=== PATIENT | female | born 1995 | race Caucasian/White ===

== ENCOUNTER 2017-03-18 13:03 | Emergency (ER) | payer MEDICARE | END 2017-03-18 15:54 | disposition home or self-care (01) | LOC: D.ER 13:03 | DX: J20.9 Acute bronchitis, unspecified (principal); J06.9 Acute upper respiratory infection, unspecified; I10 Essential (primary) hypertension ==

== ENCOUNTER 2018-07-28 12:41 | Emergency (ER) | payer MEDICARE, MEDICAID ==
[2018-07-28 12:49] VITALS: Wt 98.2 kg
[2018-07-28 14:31] LABS: BASOPHILS 0.3 % (0-2); HEMATOCRIT 40.5 % (36.0-48.0); HEMOGLOBIN 14.4 g/dL (12-16); IMMATURE GRANULOCYTES 0.1 % (0-5); LYMPHOCYTES 35.9 % (15-50); MCH 30.2 pg (26.0-34.0); MCHC 35.6 g/dL (31.0-37.0); MCV 84.9 fL (80.0-100.0); MEAN PLATELET VOLUME 9.9 fL (7.4-10.4); NEUTROPHILS 57.7 % (40-80); PLATELET COUNT 252 10x3/uL (130-400); RBC 4.77 10x6/uL (4.00-5.40); RDW 12.1 % (11.5-14.5); WBC 7.3 10x3/uL (4.8-10.8)
[2018-07-28 14:32] LABS: APPEARANCE CLEAR (CLEAR); COLOR STRAW (YELLOW); GLUCOSE NEGATIVE (NEGATIVE); NITRITE NEGATIVE (NEGATIVE); PROTEIN NEGATIVE (NEGATIVE)
[2018-07-28 14:33] LABS: BILIRUBIN NEGATIVE (NEGATIVE); KETONE NEGATIVE (NEGATIVE); UROBILINOGEN NORMAL (NORMAL)
[2018-07-28 14:35] LABS: HCG URINE NEGATIVE (NEGATIVE)
[2018-07-28 14:53] LABS: ALKALINE PHOSPHATASE 60 U/L (46-116); ALT (SGPT) 31 U/L (10-68); AMYLASE - SERUM 51 U/L (25-115); BILIRUBIN - TOTAL 0.35 mg/dL (0.2-1.3); CALC OSMOLALITY 269 mosm/kg (275-300); CALCIUM 8.8 mg/dL (8.5-10.1); CARBON DIOXIDE 25.7 mmol/L (21.0-32.0); CHLORIDE - SERUM 102 mmol/L (98-107); CREATININE - SERUM 0.5 mg/dL (0.6-1.3); LIPASE 132 U/L (73-393); POTASSIUM - SERUM 3.9 mmol/L (3.5-5.1); SODIUM 136 mmol/L (136-145); UREA NITROGEN 7 mg/dL (7-18); eGFR NON AFRICAN AMERICAN > 90 mL/min (90-120)
[2018-07-28 14:55] LABS: GLUCOSE 98 mg/dL (74-106)
[2018-07-28] MEDS ORDERED: ONDANSETRON8 MG/TAB PO (17:32)
[2018-07-28] MEDS ORDERED: TORADOL10 MG PO (17:32)
[2018-07-28 18:17] VITALS: BP 134/76
[2018-08-02] MEDS ORDERED: PROZAC PO (18:45)
[2018-08-02] MEDS ORDERED: BC PILL (18:45)
[2018-08-03 12:18] VITALS: Wt 98.2 kg
== END 2018-07-28 18:18 | disposition home or self-care (01) ==
LOC: D.ER 12:41
PROVIDERS: Family Medicine
DX: M54.5 Low back pain (principal); R10.31 Right lower quadrant pain

== ENCOUNTER 2018-08-02 18:09 | Inpatient (IN) | payer MEDICARE, MEDICAID ==
[~2018-08-02] VITALS: Ht 144 cm; Wt 92.5 kg
[~2018-08-02 18:09] MED LIST: ONDANSETRON8 MG/TAB PO; TORADOL10 MG PO
[2018-08-02] MEDS ORDERED: PROZAC20 MG PO (18:45)
[2018-08-02] MEDS ORDERED: LARIN PO (18:45)
[2018-08-02] MEDS ORDERED: ANTIBIOTIC (18:46)
[2018-08-02 19:08] LABS: BASOPHILS 0.3 % (0-2); EOSINOPHILS 1.8 % (0-7); HEMOGLOBIN 14.4 g/dL (12-16); IMMATURE GRANULOCYTES 0.2 % (0-5); LYMPHOCYTES 45.4 % (15-50); MCH 30.4 pg (26.0-34.0); MCV 84.6 fL (80.0-100.0); MEAN PLATELET VOLUME 9.6 fL (7.4-10.4); MONOCYTES 9.6 % (2-11); NEUTROPHILS 42.7 % (40-80); PLATELET COUNT 238 10x3/uL (130-400); RBC 4.73 10x6/uL (4.00-5.40); RDW 12.1 % (11.5-14.5)
[2018-08-02 19:14] LABS: APTT 26.1 SECONDS (22.8-39.4); INR 1.02 (0.85-1.17); PROTIME 12.9 SECONDS (11.6-15.0)
--- NOTE | 2018-08-02 19:26 | NUR ---
OCCULT BLOOD (GUAIAC) POSITIVE. SAMPLE COLLECTED BY Lisa HEART.
[2018-08-02 19:52] LABS: eGFR NON AFRICAN AMERICAN > 90 mL/min (90-120)
[2018-08-02 19:58] LABS: GLUCOSE 89 mg/dL (74-106); UREA NITROGEN 6 mg/dL (7-18)
[2018-08-02 19:59] LABS: CALCIUM 7.4 mg/dL (8.5-10.1); CARBON DIOXIDE 18.7 mmol/L (21.0-32.0); CHLORIDE - SERUM 89 mmol/L (98-107); CREATININE - SERUM 0.3 mg/dL (0.6-1.3); POTASSIUM - SERUM 3.3 mmol/L (3.5-5.1); SODIUM 121 mmol/L (136-145)
[2018-08-02 20:00] LABS: CALC OSMOLALITY 288 mosm/kg (275-300)
[2018-08-02 20:01] LABS: ALBUMIN 2.8 g/dL (3.4-5.0); ALKALINE PHOSPHATASE 50 U/L (46-116); ALT (SGPT) 24 U/L (10-68); BILIRUBIN - TOTAL 0.12 mg/dL (0.2-1.3); PROTEIN - SERUM 4.1 g/dL (6.4-8.2)
[2018-08-02 21:08] LABS: ERYTHROCYTE SEDIMENTATION RATE 13 mm/hr (0-20)
[2018-08-02 22:34] LABS: APPEARANCE SL CLDY (CLEAR); BILIRUBIN NEGATIVE (NEGATIVE); GLUCOSE NEGATIVE (NEGATIVE); KETONE NEGATIVE (NEGATIVE); NITRITE NEGATIVE (NEGATIVE); PROTEIN NEGATIVE (NEGATIVE); UROBILINOGEN NORMAL (NORMAL)
[2018-08-02 22:35] LABS: WHITE CELLS - URINE 0-5 /hpf (0-5)
[2018-08-02 22:36] LABS: BACTERIA MODERATE /hpf (NONE SEEN)
[2018-08-02 22:40] VITALS: BP 152/76
[2018-08-03] VITALS (8 sets, daily range): BP systolic 111–136; BP diastolic 43–94; Ht 144 cm; Wt 92.5 kg
--- NOTE | 2018-08-03 00:17 | NUR ---
PT ARRIVED TO FLOOR VIA WHEELCHAIR WITH MOTHER AT SIDE. PT IS ALERT AND ORIENTED X4. RR EVEN AND UNLABORED. PT VITALS STABLE AT THIS TIME. MOTHER ANSWERS SOME OF PT'S QUESTIONS. BED LOW CALL LIGHT WITHIN REACH. WILL CONTINUE TO MONITOR.
--- NOTE | 2018-08-03 02:17 | NUR ---
ADMISSION ASSESSMENT COMPLETED AT THIS TIME. PT RESTING IN BED.
--- NOTE | 2018-08-03 02:50 | NUR ---
PT RESTING COMFORTABLY IN BED WITH MOTHER AT BEDSIDE. RR EVEN AND UNLABORED. VITALS STABLE. NO S/S OF DISTRESS AT THIS TIME. BED LOW CALL LIGHT WITHIN REACH. WILL CONTINUE TO MONITOR.
[2018-08-03 04:05] LABS: BASOPHILS 0.3 % (0-2); EOSINOPHILS 2.1 % (0-7); HEMATOCRIT 36.5 % (36.0-48.0); HEMOGLOBIN 12.9 g/dL (12-16); IMMATURE GRANULOCYTES 0.1 % (0-5); LYMPHOCYTES 42.5 % (15-50); MCH 29.9 pg (26.0-34.0); MCHC 35.3 g/dL (31.0-37.0); MCV 84.7 fL (80.0-100.0); MEAN PLATELET VOLUME 9.8 fL (7.4-10.4); MONOCYTES 10.1 % (2-11); NEUTROPHILS 44.9 % (40-80); PLATELET COUNT 193 10x3/uL (130-400); RBC 4.31 10x6/uL (4.00-5.40); RDW 12.1 % (11.5-14.5)
[2018-08-03 04:32] LABS: AMYLASE - SERUM 46 U/L (25-115); CALC OSMOLALITY 272 mosm/kg (275-300); CALCIUM 8.7 mg/dL (8.5-10.1); CARBON DIOXIDE 22.9 mmol/L (21.0-32.0); CHLORIDE - SERUM 106 mmol/L (98-107); GLUCOSE 105 mg/dL (74-106); LIPASE 117 U/L (73-393); MAGNESIUM - SERUM 1.9 mg/dL (1.8-2.4); PHOSPHOROUS 4.8 mg/dL (2.5-4.9); SODIUM 138 mmol/L (136-145); THYROID STIMULATING HORMONE 3.24 uIU/mL (0.36-3.74); UREA NITROGEN 5 mg/dL (7-18)
[2018-08-03 04:34] LABS: CREATININE - SERUM 0.5 mg/dL (0.6-1.3); POTASSIUM - SERUM 3.8 mmol/L (3.5-5.1); eGFR NON AFRICAN AMERICAN > 90 mL/min (90-120)
--- NOTE | 2018-08-03 07:00 | NUR ---
RECEIVED REPORT. ASSUMED CARE OF PATIENT. PATIENT JUST RECEIVED ZOFRAN FROM NIGHT STAFF NURSE,LALO, FOR N/V THIS AM. PATIENT LYING ON RIGHT LATERAL SIDE. RESP EVEN AND UNLABORED. PATIENT STATES SHE IS SLEEPY THIS AM. IV FLUIDS INFUSING ORDERED. PATIENTS MOM AT BEDSIDE. NO DISTRESS. CALL LIGHT WITHIN REACH.
--- NOTE | 2018-08-03 07:11 | NUR ---
SPOKE WITH [facility] IN THE LAB AND THEY ARE RUNNING A CULTURE ON THE URINE THAT WAS COLLECTED LAST NIGHT.
--- NOTE | 2018-08-03 10:20 | NUR ---
ULTRASOUND OF GALLBLADDER COMPLETED. CLEAR LIQUIDS PROVIDED UPON REQUEST. NO N/V AT THIS TIME.
--- NOTE | 2018-08-03 10:35 | NUR ---
CXR COMPLETE AT BEDSIDE. NO DISTRESS.
--- NOTE | 2018-08-03 11:45 | NUR ---
RESTING IN BED. NO DISTRESS. IV FLUIDS INFUSING ORDERED. PT HAS NO VISITORS AT BEDSIDE AT THIS TIME. DENEIS NEEDS.
--- NOTE | 2018-08-03 12:43 | NUR ---
REQUEST MADE TO PROVIDER FOR TYLENOL FOR HEADACHE. WAITING FOR RESPONSE.
--- NOTE | 2018-08-03 12:47 | NUR ---
ANSWERED CALL LIGHT. PATIENT ASSISTED OOB TO RESTROOM AND BACK TO BED.
--- NOTE | 2018-08-03 12:51 | NUR ---
MEDICATED FOR HEADACHE AT THIS TIME. NO DISTRESS.
--- NOTE | 2018-08-03 14:07 | NUR ---
NEFTALY PROVIDED UPON REQUEST. IV FLUIDS INFUSING ORDERED. NO DISTRESS.
--- NOTE | 2018-08-03 15:16 | NUR ---
NEW ORDER RECEIVED AND ENTERED FOR REGUALR DIET.
--- NOTE | 2018-08-03 16:01 | NUR ---
ASSISTED TO AND FROM RESTROOM. IV FLUIDS INFUSING ORDERED AT THIS TIME. CALL LIGHT WITHIN REACH. PATIENTS MOM AT BEDSIDE AT THIS TIME. NO DISTRESS.
--- NOTE | 2018-08-03 16:54 | NUR ---
PATIENT REFUSED SCD'S.
--- NOTE | 2018-08-03 17:47 | NUR ---
PATIENT NOTED TO HAVE HER MENSTRUAL CYCLE. PATIENT STATES SHE JUST HAD A MENSTRUAL CYCLE ON July, AND DOESN'T KNOW WHY SHE IS HAVING ANOTHER ONE SO SOON. PATIENT STATES SHE HAS BEEN MORE STRESSED OUT THAN USUSAL. ASKED PATIENT IF SHE IS HAVING BLOOD FROM HER RECTUM, PATIENT STATES VERY LITTLE IF ANY. PATIENT HAS CONSUMED AND TOLERATED A REGULAR DIET WELL FOR PM MEAL. CALL LIGHT WITHIN REACH. NO DISTRESS. NO VISITORS AT BEDSIDE.
--- NOTE | 2018-08-03 19:27 | NUR ---
REPORT RECIEVED AND ROUNDING COMPLETE. PATIENT LAYING IN BED. PT REQUESTED SOME PUDDING OR APPLESAUCE. PATIENT HAS A RIGHT FOREARM THAT IS SALINE LOCKED WITH NO S/SX OF INFILTRATION OR INFECTION. PT STATES SHE IS NOT IN ANY PAIN AT THIS TIME. PATIENT STATE SHE HAS NO OTHER NEEDS A THIS TIME. CALL LIGHT WITHIN REACH AND BED IN LOWEST POSITION AND LOCKED.
--- NOTE | 2018-08-03 19:47 | NUR ---
RESTARTED PATIENTS NORMAL SALINE @ 100 PER ORDERS. PATIENT STATES SHE UNDID HERSELF TO GO TO THE BATHROOM EARLIER AND FORGOT TO TELL HER NURSE. NO OTHER NEEDS AT THIS TIME. CALL LIGHT WITHIN REACH AND BED IN LOWEST POSITION.
--- NOTE | 2018-08-03 21:06 | NUR ---
LAB CALLED PATIENT IS POSITIVE FOR THE ANTIGEN OF CDIFF. ENTERIC PRECAUTION PUT INTO EFFECT. PATIENT NOTIFIED.
[2018-08-04 03:55] VITALS: BP 125/61
[2018-08-04 03:55] LABS: BASOPHILS 0.3 % (0-2); EOSINOPHILS 2.1 % (0-7); HEMATOCRIT 38.6 % (36.0-48.0); HEMOGLOBIN 13.4 g/dL (12-16); IMMATURE GRANULOCYTES 0.2 % (0-5); LYMPHOCYTES 48.7 % (15-50); MCH 29.8 pg (26.0-34.0); MCHC 34.7 g/dL (31.0-37.0); MCV 85.8 fL (80.0-100.0); MEAN PLATELET VOLUME 9.7 fL (7.4-10.4); MONOCYTES 7.9 % (2-11); NEUTROPHILS 40.8 % (40-80); PLATELET COUNT 205 10x3/uL (130-400); RDW 12.3 % (11.5-14.5); WBC 5.8 10x3/uL (4.8-10.8)
[2018-08-04 04:04] LABS: CALC OSMOLALITY 278 mosm/kg (275-300); CALCIUM 8.8 mg/dL (8.5-10.1); CARBON DIOXIDE 25.8 mmol/L (21.0-32.0); CHLORIDE - SERUM 107 mmol/L (98-107); CREATININE - SERUM 0.5 mg/dL (0.6-1.3); GLUCOSE 108 mg/dL (74-106); MAGNESIUM - SERUM 1.9 mg/dL (1.8-2.4); PHOSPHOROUS 4.5 mg/dL (2.5-4.9); POTASSIUM - SERUM 3.9 mmol/L (3.5-5.1); SODIUM 141 mmol/L (136-145); UREA NITROGEN 5 mg/dL (7-18); eGFR NON AFRICAN AMERICAN > 90 mL/min (90-120)
--- NOTE | 2018-08-04 07:00 | NUR ---
RECEIVED REPORT. ASSUMED CARE OF PATIENT. PATIENT RESTINING IN BED WITH EYES CLOSED, EASILY AROUSED. RESP EVEN AND UNLABORED. IV FLUIDS INFUSING ORDERED. PATIENT UPSET THAT HER MOM DID NOT STAY WITH HER LAST NIGHT. DENIES NEEDS OTHER THAT WAITING ON HER BREAKFAST TO COME. NO DISTRESS.
[2018-08-04 08:02] VITALS: BP 123/75
--- NOTE | 2018-08-04 11:46 | NUR ---
ASSISTED PATIENT OOB TO RESTROOM AND BACK TO BED. CALL LIGHT WITHIN REACH. NO DISTRESS.
[2018-08-04 11:50] VITALS: BP 122/68
--- NOTE | 2018-08-04 13:00 | NUR ---
ASSISTED PATIENT OOB TO RESTROOM AND BACK TO BED. NO DISTRESS.
--- NOTE | 2018-08-04 14:00 | NUR ---
PATIENT OOB TO SHOWER AT THIS TIME. NO DISTRESS.
[2018-08-04 16:03] VITALS: BP 150/77
--- NOTE | 2018-08-04 16:05 | NUR ---
PATIENT PAYROLL ASSISTANT LIGHT AGAIN. PATIENT IS IN ISOLATION. WHEN IN PATIENT ROOM EARLIER ASKED PATIENT IF SHE NEEDED ANYTHING ELSE. SOON THIS NURSE LEAVES THE ROOM SHE IS ON THE CALL LIGHT FOR CRACKERS. PATIENTS MOM IS AT BEDSIDE ALSO. PATIENT HAS DONE THIS ALL DAY WITH THE CALL LIGHT. NURSES TRYING TO PROVIDE CLUSTER CARE PATIENT IS IN ISOLATION. PATIENT IS NOT UNDERSTANDING OF THIS APPROACH.
--- NOTE | 2018-08-04 19:00 | NUR ---
PATIENT SITTING UP IN BED. NO COMPLAINTS AT THIS TIME. NO DISTRESS NOTED.
[2018-08-04 19:10] VITALS: BP 143/78
[2018-08-04 23:55] VITALS: BP 128/81
--- NOTE | 2018-08-05 01:00 | NUR ---
PATIENT SITTING UP IN BED. NO COMPLAINTS AT THIS TIME. NO DISTRESS NOTED.
--- NOTE | 2018-08-05 03:26 | NUR ---
I have reviewed this patient and I concur with the Shift Assessment completed by the Licensed Practical Nurse today this shift.
[2018-08-05 03:55] VITALS: BP 139/65
[2018-08-05 04:51] LABS: BASOPHILS 0.3 % (0-2); HEMATOCRIT 39.6 % (36.0-48.0); HEMOGLOBIN 13.7 g/dL (12-16); IMMATURE GRANULOCYTES 0.1 % (0-5); LYMPHOCYTES 50.4 % (15-50); MCH 29.7 pg (26.0-34.0); MCHC 34.6 g/dL (31.0-37.0); MCV 85.9 fL (80.0-100.0); MEAN PLATELET VOLUME 9.9 fL (7.4-10.4); MONOCYTES 7.9 % (2-11); NEUTROPHILS 39.3 % (40-80); PLATELET COUNT 234 10x3/uL (130-400); RBC 4.61 10x6/uL (4.00-5.40); RDW 12.4 % (11.5-14.5); WBC 7.1 10x3/uL (4.8-10.8)
[2018-08-05 05:21] LABS: CALC OSMOLALITY 278 mosm/kg (275-300); CALCIUM 8.9 mg/dL (8.5-10.1); CARBON DIOXIDE 26.2 mmol/L (21.0-32.0); CHLORIDE - SERUM 106 mmol/L (98-107); CREATININE - SERUM 0.6 mg/dL (0.6-1.3); GLUCOSE 103 mg/dL (74-106); MAGNESIUM - SERUM 1.9 mg/dL (1.8-2.4); PHOSPHOROUS 4.7 mg/dL (2.5-4.9); POTASSIUM - SERUM 3.8 mmol/L (3.5-5.1); SODIUM 141 mmol/L (136-145); eGFR NON AFRICAN AMERICAN > 90 mL/min (90-120)
[2018-08-05 05:24] LABS: UREA NITROGEN 8 mg/dL (7-18)
--- NOTE | 2018-08-05 08:00 | NUR ---
AM ROUNDS COMPLETED. INTRODUCED MYSELF TO PT PRIMARY RN FOR TODAYS SHIFT. PT IS A&O SITTING UP IN BED RESTING QUIETLY. PT STATES SHE SLEPT ALRIGHT BUT DENIES FEELING ANY BETTER. PT IS COGNITIVELY DELAYED BUT CAN SPEAK AND DO ALL TASK ON HER OWN JUST NOT COMPLETELY SURE OF WHAT SHE UNDERSTANDS AND RETAINS ENTIRELY. NO IMMEDIATE NEEDS AT THIS TIME. CL IN REACH, BED IN LOWEST, SIDE RAILS X2. WILL CTM.
[2018-08-05 08:05] VITALS: BP 128/72
--- NOTE | 2018-08-05 11:34 | NUR ---
PT C/O HEADACHE REQUESTING AND PROVIDED WITH PRN TYLENOL. PT STATES HER R.FA PIV HAS BEEN BURNING ALL NIGHT AND THAT SHE INFORMED THE NIGHTSHIFT STAFF BUT NOBODY TURNED IT OFF. UPON ASSESSING IT NOTED IMMEDIATE OBVIOUS SWELLING AND INFILTRATED. D/C WITH CATHETER TIP FULLY INTACT. PT IS NOT WANTING A NEW PIV IF SHE MAY BE DISCHARGE TODAY WHICH APPEARS A POSSIBILITY. WILL DISCUSS WITH PRIMARY UPON ROUNDING. PT VOICED THANKS AND WILL SEE IF TYLENOL HELPS. NO FURTHER NEEDS AT THIS TIME. WILL CTM.
[2018-08-05 11:38] VITALS: BP 104/64
--- NOTE | 2018-08-05 12:33 | NUR ---
PAGED ON-CALL ROUNDING PHYSICIANS AND OBTAINED TELEPHONE ORDER TO D/C IV FLAGYL AND SWITCH TO ORAL AND MAY LEAVE PIV OUT FOR NOW UNTIL DECIDING DECISION ON DISCHARGE.
--- NOTE | 2018-08-05 17:00 | NUR ---
PTS FAMILY HERE AND VISITING. PT SITTING UP IN BED WANTING A SECOND DINNER TRAY. CALLED DIETARY AND ORDERED ONE. PT VOICED THANKS. PT IS STAYING OVERNIGHT R/T URINE CULTURE RESULTS. WILL CTM. NO IMMEDIATE NEEDS. CL IN REACH.
[2018-08-05 18:48] VITALS: BP 133/83
--- NOTE | 2018-08-05 19:00 | NUR ---
BED LOW AND LOCKED SRX2 PT MOAE WELL LCTA AND DENIES PAIN ASKING FOR A SANDWICH LCTA SKIN WARM AND DRY AND BOWEL SOUNDS X4 CALL LIGHT IS IN REACH
[2018-08-05 20:00] VITALS: BP 156/90
--- NOTE | 2018-08-06 02:21 | NUR ---
I have reviewed this patient and I concur with the Shift Assessment completed by the Licensed Practical Nurse today this shift.
[2018-08-06 04:00] VITALS: BP 122/50
[2018-08-06 07:17] LABS: CALC OSMOLALITY 275 mosm/kg (275-300); CARBON DIOXIDE 26.7 mmol/L (21.0-32.0); CHLORIDE - SERUM 105 mmol/L (98-107); CREATININE - SERUM 0.5 mg/dL (0.6-1.3); GLUCOSE 101 mg/dL (74-106); MAGNESIUM - SERUM 1.8 mg/dL (1.8-2.4); PHOSPHOROUS 5.2 mg/dL (2.5-4.9); POTASSIUM - SERUM 4.1 mmol/L (3.5-5.1); SODIUM 138 mmol/L (136-145); eGFR NON AFRICAN AMERICAN > 90 mL/min (90-120)
[2018-08-06 07:19] LABS: BASOPHILS 0.3 % (0-2); EOSINOPHILS 2.3 % (0-7); HEMATOCRIT 37.6 % (36.0-48.0); HEMOGLOBIN 13.1 g/dL (12-16); IMMATURE GRANULOCYTES 0.1 % (0-5); LYMPHOCYTES 44.7 % (15-50); MCH 29.5 pg (26.0-34.0); MCHC 34.8 g/dL (31.0-37.0); MCV 84.7 fL (80.0-100.0); MEAN PLATELET VOLUME 9.6 fL (7.4-10.4); MONOCYTES 8.6 % (2-11); PLATELET COUNT 217 10x3/uL (130-400); RBC 4.44 10x6/uL (4.00-5.40); RDW 12.2 % (11.5-14.5)
[2018-08-06 07:20] LABS: UREA NITROGEN 12 mg/dL (7-18)
[2018-08-06 08:49] VITALS: BP 125/63
--- NOTE | 2018-08-06 10:00 | NUR ---
PT HAD MODERATE SIZE FORMED STOOL DARK BROWN IN COLOR. PT ASKING ABOUT DISCHARGING. WILL DISCUSS WITH PRIMARY AND CPOC.
[2018-08-06] MEDS ORDERED: FLAGYL500 MG PO (11:46)
[2018-08-06] MEDS ORDERED: GEMFIBROZIL600 MG PO (12:10)
--- NOTE | 2018-08-06 13:15 | NUR ---
Nutrition follow-up: Diet: Regular PO intake very good; pt requesting extra meal trays Wt: 203# +BM RDN following.
[2018-08-06 13:43] VITALS: BP 128/69
--- NOTE | 2018-08-06 14:01 | MORECARE ---
CASE MANAGEMENT DISCHARGE SUMMARY PATIENT: TOSIN PERRY UNIT: [id number] ADM DATE: 08/02/18 AGE: 23 : [birth year] SEX: F ROOM/BED: D.2111 AUTHOR: PITO OROURKE PHYSICIAN: REFERRING PHYSICIAN: HARLAN VILLEGAS MD DATE OF SERVICE: 08/06/18 Discharge Plan Patient Name: TOSIN PERRY Facility: [facility]:[place] : 1995 Planned Disposition: Home Anticipated Discharge Date: 08/06/18 Discharge Date: Expected LOS: 4 Initial Reviewer: [email or web address] Initial Review Date: 08/06/2018 Generated: 08/06/18 3:01 pm DCPIA - Discharge Planning Initial Assessment Updated by [id number]: Bunny Urrutia on 08/06/18 1:59 pm * Is the patient Alert and Oriented? Yes * How many steps to enter\exit or inside your home? NONE * PCP [facility] * Pharmacy [facility], [facility]. * Preadmission Environment Home Alone * ADLs Independent * Equipment None * Other Equipment NO MEDICAL EQUIPMENT PROVIDER PREFERENCE * List name and contact numbers for known caregivers / representatives who currently or will assist patient after discharge: STARLA JOHNSON, MOTHER, FLAVIO JOYNER, [facility], * Verbal permission to speak to the caregivers and representatives has been obtained from the patient. Yes * Community resources currently utilized None * Please name any agencies selected above. NONE * Additional services required to return to the preadmission environment? No * Can the patient safely return to the preadmission environment? Yes * Has this patient been hospitalized within the prior 30 days at any hospital? No Patient Name: TOSIN PERRY Page [id number] at 1401 All edits/amendments must be made on the electronic document DICTATION DATE: 08/06/18 1400 FISHING TACKLE REPAIRER: YAHIR 08/06/18 1400 RPT#: [id number] DC DATE: STATUS: ADM IN [facility] [address] [id number] END OF REPORT
--- NOTE | 2018-08-06 14:09 | MORECARE ---
CASE MANAGEMENT DISCHARGE SUMMARY PATIENT: TOSIN PERRY UNIT: [id number] ADM DATE: 08/02/18 AGE: 23 : [birth year] SEX: F ROOM/BED: D.2111 AUTHOR: HAVEN,DOC PHYSICIAN: REFERRING PHYSICIAN: HARLAN VILLEGAS MD DATE OF SERVICE: 08/06/18 Discharge Plan Patient Name: TOSIN PERRY Facility: [facility]:[place] : 1995 Planned Disposition: Home Anticipated Discharge Date: 08/06/18 Discharge Date: Expected LOS: 4 Initial Reviewer: [email or web address] Initial Review Date: 08/06/2018 Generated: 08/06/18 3:09 pm Comments DCP- Discharge Planning Updated by [id number]: Bunny Urrutia on 08/06/18 1:[address] Patient Name: TOSIN PERRY Encounter No: [id number] : 1995 Primary Insurance: [facility] MEDIC[employer] SOLUTIONS Anticipated DC Date: 08-06-2018 Planned Disposition: Home DISCHARGE PLANNING NOTE: CM MET WITH PT IN ROOM TO DISCUSS DISCHARGE PLANNING AND NEEDS. PT REPORTS LIVING AT HOME INDEPENDENTLY AND ALONE IN [facility] APARTMENT. PT HAS NO MEDICAL EQUIPMENT AND NO OUTSIDE SERVICES ASSISTING IN THE HOME. CM DISCUSSED AVAILABILITY OF HOME HEALTH, REHAB SERVICES AND MEDICAL EQUIPMENT. PT DENIES DISCHARGE NEEDS, REPORTS HER MOTHER WILL PICK HER UP FOR DISCHARGE HOME. PT CONCERNED THAT [facility] WILL NOT LET HER RETURN TO THE APARTMENT WITH "CDIFF". CM CALLED [facility], , SPOKE TO LILLY WHO INFORMED CM THAT IT WAS OK FOR PT TO RETURN HOME AND THEY WOULD INFORM PT'S BANANA HANDLER AND ELECTRONIC CONSOLE DISPLAY OPERATOR. PT NOTIFIED AND IN AGREEMET WITH PLAN, DENIES FURHTER NEEDS. BEDSIDE NURSE AND HEAD BUCKER NURSE NOTIFIED. Bunny Urrutia CASE MANAGEMENT DCPIA - Discharge Planning Initial Assessment Updated by [email or web address]: Bunny Urrutia on 08/06/18 1:59 pm * Is the patient Alert and Oriented? Yes * How many steps to enter\\exit or inside your home? NONE * PCP [facility] * Pharmacy [facility], [facility]. * Preadmission Environment Home Alone * ADLs Independent * Equipment None * Other Equipment NO MEDICAL EQUIPMENT PROVIDER PREFERENCE * List name and contact numbers for known caregivers / representatives who currently or will assist patient after discharge: STARLA JOHNSON, MOTHER, FLAVIO JOYNER, [facility], * Verbal permission to speak to the caregivers and representatives has been obtained from the patient. Yes * Community resources currently utilized None * Please name any agencies selected above. NONE * Additional services required to return to the preadmission environment? No * Can the patient safely return to the preadmission environment? Yes * Has this patient been hospitalized within the prior 30 days at any hospital? No Last DP export: 08/06/18 1:01 p Patient Name: TOSIN PERRY Page [phone] at 1409 All edits/amendments must be made on the electronic document DICTATION DATE: 08/06/181408 LABORER EGG PRODUCING FARM: YAHIR 08/06/181408 RPT#: [id number] DC DATE: STATUS: ADM IN [facility] [address] [place] [address] END OF REPORT
--- NOTE | 2018-08-06 14:12 | NUR ---
PT IS GOING TO BE DISCHARGED AND VERY HAPPY SHE STATES. DISCHARGE TEACHING PROVIDED AND PAPERS SIGNED. PT DENIES ANY QUESTIONS OR CONCERNS. BELONGINGS BAG PROVIDED AND FAMILY AT BEDSIDE FOR TRANSPORTATION. WILL CALL FOR AN ESCORT AT THIS TIME.
== END 2018-08-06 14:34 | disposition home or self-care (01) | DRG 372 ==
LOC: D.ER 18:09 → D.M2 22:27
PROVIDERS: Emergency Medicine; Family Medicine; ADMIT Internal Medicine Nephrology; ATTEND Internal Medicine Nephrology
DX: A04.72 Enterocolitis due to Clostridium difficile, not specified as recurrent (principal); K92.0 Hematemesis; N39.0 Urinary tract infection, site not specified; E87.1 Hypo-osmolality and hyponatremia; Z68.42 Body mass index [BMI] 45.0-49.9, adult; I88.0 Nonspecific mesenteric lymphadenitis; K52.9 Noninfective gastroenteritis and colitis, unspecified; E87.6 Hypokalemia; B96.89 Other specified bacterial agents as the cause of diseases classified elsewhere; E66.01 Morbid (severe) obesity due to excess calories

== ENCOUNTER 2018-08-10 23:13 | Emergency (ER) | payer MEDICARE, MEDICAID ==
[~2018-08-10] VITALS: Ht 144 cm; Wt 90.7 kg
[~2018-08-10 23:13] MED LIST changes: +ANTIBIOTIC; +FLAGYL500 MG PO; +GEMFIBROZIL600 MG PO; +LARIN PO; +PROZAC20 MG PO
[2018-08-10 23:16] VITALS: Ht 144 cm; Wt 90.7 kg
[2018-08-10 23:31] LABS: HEMATOCRIT 37.2 % (36.0-48.0); HEMOGLOBIN 13.4 g/dL (12-16); LYMPHOCYTES 43.9 % (15-50); MCH 30.9 pg (26.0-34.0); MCV 85.7 fL (80.0-100.0); MEAN PLATELET VOLUME 9.1 fL (7.4-10.4); PLATELET COUNT 229 10x3/uL (130-400); RBC 4.34 10x6/uL (4.00-5.40); RDW 11.7 % (11.5-14.5); WBC 7.1 10x3/uL (4.8-10.8)
[2018-08-10 23:49] LABS: ALBUMIN 2.6 g/dL (3.4-5.0); ALKALINE PHOSPHATASE 77 U/L (46-116); ALT (SGPT) 37 U/L (10-68); BILIRUBIN - TOTAL 0.31 mg/dL (0.2-1.3); CALC OSMOLALITY 280 mosm/kg (275-300); CALCIUM 7.4 mg/dL (8.5-10.1); CARBON DIOXIDE 24.8 mmol/L (21.0-32.0); CHLORIDE - SERUM 108 mmol/L (98-107); CREATININE - SERUM 0.4 mg/dL (0.6-1.3); GLUCOSE 127 mg/dL (74-106); POTASSIUM - SERUM 3.7 mmol/L (3.5-5.1); PROTEIN - SERUM 5.8 g/dL (6.4-8.2); SODIUM 141 mmol/L (136-145); UREA NITROGEN 8 mg/dL (7-18); eGFR NON AFRICAN AMERICAN > 90 mL/min (90-120)
[2018-08-11 00:59] LABS: HCG SERUM NEGATIVE (NEGATIVE)
[2018-08-11] MEDS ORDERED: LOMOTIL 2.5-0.1 EAC1 PO (01:49)
[2018-08-11 02:24] VITALS: BP 138/75
== END 2018-08-11 02:20 | disposition home or self-care (01) ==
LOC: D.ER 23:13
PROVIDERS: Family Medicine
DX: E86.0 Dehydration (principal); R19.7 Diarrhea, unspecified; B96.89 Other specified bacterial agents as the cause of diseases classified elsewhere; R55 Syncope and collapse

== ENCOUNTER → 2018-08-16 12:52 | Outpatient (CLI) | payer MEDICARE, MEDICAID ==
[2018-08-10 23:16] VITALS: BMI 47.7
[~2018-08-16 12:52] MED LIST changes: +LOMOTIL 2.5-0.1 EAC1 PO
== END | disposition home or self-care (01) ==
LOC: D.NM 12:52
PROVIDERS: ATTEND Family Medicine
DX: R10.11 Right upper quadrant pain (principal)

== ENCOUNTER 2018-09-11 07:38 | Day surgery (SDC) | payer MEDICARE, MEDICAID ==
[~2018-09-11] VITALS: Ht 144 cm; Wt 98.4 kg
[2018-09-11 08:11] LABS: HEMATOCRIT 40.7 % (36.0-48.0); HEMOGLOBIN 14.3 g/dL (12-16); MCHC 35.1 g/dL (31.0-37.0); MCV 85.3 fL (80.0-100.0); MEAN PLATELET VOLUME 9.4 fL (7.4-10.4); RBC 4.77 10x6/uL (4.00-5.40); RDW 12.3 % (11.5-14.5); WBC 7.7 10x3/uL (4.8-10.8)
[2018-09-11] MEDS ORDERED: TYLENOL W/CODEI1 TAB PO (09:10)
[2018-09-11 09:27] VITALS: BP 135/78; Ht 144 cm; Wt 98.4 kg
[2018-09-11 09:40] LABS: HCG URINE NEGATIVE (NEGATIVE)
[2018-09-11] MEDS ORDERED: HYDROCODON-ACE1 EAC7 PO (09:44)
--- NOTE | 2018-09-11 11:55 | NUR ---
REC'D FROM . TRANSFERRED SELF TO BED. DRESSING CDI TO SURGICAL INCISIONS ON ABDOMEN. FAMILY AT BEDSIDE. ISMAEL LEDESMA SERVED.
--- NOTE | 2018-09-11 12:10 | NUR ---
IV OOZING. DC'D WITH CATHETER INTACT. PLACED ON BEDPAN.
--- NOTE | 2018-09-11 12:25 | NUR ---
VOIDED IN BEDPAN. FAMILY HELPING WITH FL TRAY.
--- NOTE | 2018-09-11 12:55 | NUR ---
TOLERATED FL DIET. AMBULATED TO BATHROOM AND VOIDED WITHOUT DIFFICULTY.
--- NOTE | 2018-09-11 13:05 | NUR ---
WRITTEN AND VERBAL DC INST. GIVEN TO PT. VERBALIZED UNDERSTANDING.
--- NOTE | 2018-09-11 13:18 | NUR ---
DC'D HOME WITH FAMILY VIA PRIVATE VEHICLE. STABLE AT TIME OF DC.
== END 2018-09-11 13:20 | disposition home or self-care (01) ==
LOC: D.OPS 07:38 → D.PAN 10:15 → D.OPS 13:20
PROVIDERS: Anesthesiology; ATTEND Surgery
DX: K82.8 Other specified diseases of gallbladder (principal); E66.01 Morbid (severe) obesity due to excess calories; Q87.1 Congenital malformation syndromes predominantly associated with short stature; E78.2 Mixed hyperlipidemia; Z68.42 Body mass index [BMI] 45.0-49.9, adult; Z01.812 Encounter for preprocedural laboratory examination

== ENCOUNTER 2018-11-16 20:53 | Emergency (ER) | payer MEDICARE, MEDICAID ==
[~2018-11-16] VITALS: Ht 144 cm; Wt 100.5 kg
[~2018-11-16 20:53] MED LIST changes: +HYDROCODON-ACE1 EAC7 PO; +TYLENOL W/CODEI1 TAB PO
[2018-11-16 21:20] VITALS: Ht 144 cm; Wt 100.5 kg
[2018-11-16 22:14] LABS: APPEARANCE SL CLDY (CLEAR); BILIRUBIN NEGATIVE (NEGATIVE); COLOR YELLOW (YELLOW); GLUCOSE NEGATIVE (NEGATIVE); KETONE NEGATIVE (NEGATIVE); NITRITE NEGATIVE (NEGATIVE); PROTEIN TRACE mg/dL (NEGATIVE); SPECIFIC GRAVITY 1.025 (1.005-1.020); UROBILINOGEN NORMAL (NORMAL)
[2018-11-16 22:16] LABS: RED CELLS - URINE 0-5 /hpf (0-5); WHITE CELLS - URINE 0-5 /hpf (NEGATIVE)
[2018-11-16 22:17] LABS: BACTERIA FEW /hpf (NEGATIVE); HCG URINE NEGATIVE (NEGATIVE); MUCUS <1+ /lpf (NONE SEEN)
[2018-11-16 22:43] LABS: BASOPHILS 0.6 % (0-2); EOSINOPHILS 0.2 % (0-7); HEMATOCRIT 43.6 % (36.0-48.0); HEMOGLOBIN 15.3 g/dL (12-16); IMMATURE GRANULOCYTES 0.2 % (0-5); LYMPHOCYTES 34.5 % (15-50); MCH 30.8 pg (26.0-34.0); MCHC 35.1 g/dL (31.0-37.0); MCV 87.9 fL (80.0-100.0); MEAN PLATELET VOLUME 9.4 fL (7.4-10.4); MONOCYTES 7.9 % (2-11); NEUTROPHILS 56.6 % (40-80); PLATELET COUNT 199 10x3/uL (130-400); RBC 4.96 10x6/uL (4.00-5.40); RDW 12.6 % (11.5-14.5); WBC 4.7 10x3/uL (4.8-10.8)
[2018-11-16 22:57] LABS: ALBUMIN 3.1 g/dL (3.4-5.0); ALKALINE PHOSPHATASE 96 U/L (46-116); ALT (SGPT) 27 U/L (10-68); BILIRUBIN - TOTAL 0.58 mg/dL (0.2-1.3); CALC OSMOLALITY 273 mosm/kg (275-300); CALCIUM 8.6 mg/dL (8.5-10.1); CARBON DIOXIDE 24.6 mmol/L (21.0-32.0); CHLORIDE - SERUM 105 mmol/L (98-107); CREATININE - SERUM 0.6 mg/dL (0.6-1.3); GLUCOSE 102 mg/dL (74-106); LIPASE 121 U/L (73-393); POTASSIUM - SERUM 3.8 mmol/L (3.5-5.1); PROTEIN - SERUM 6.8 g/dL (6.4-8.2); SODIUM 138 mmol/L (136-145); UREA NITROGEN 7 mg/dL (7-18); eGFR NON AFRICAN AMERICAN > 90 mL/min (90-120)
[2018-11-16] MEDS ORDERED: LOPERAMIDE HCL2 MG PO (23:32)
[2018-11-16] MEDS ORDERED: ZOFRAN ODT4 MG/UDTAB PO (23:32)
--- NOTE | 2018-11-16 23:40 | NUR ---
PATIENT IS HERE FOR ABDOMINAL PAIN, NAUSEA, DIARRHEA AND VOMITING. SHE DENIES FEELING SUICIDIAL AT THIS TIME AND FEELS THAT IT IS MORALLY WRONG TO TAKE HER OWN LIFE. SHE HAS A GOOD SUPPORT SYSTEM, MOTHER IS AT BEDSIDE. SHE CAN STATE REASONS FOR LIVING. SUICIDE PREVENTION RESOURCE GIVEN TO PATIENT.
[2018-11-17 00:26] VITALS: BP 115/67
== END 2018-11-17 00:27 | disposition home or self-care (01) ==
LOC: D.ER 20:53
PROVIDERS: Family Medicine
DX: R11.2 Nausea with vomiting, unspecified (principal); R19.7 Diarrhea, unspecified; I10 Essential (primary) hypertension; E78.5 Hyperlipidemia, unspecified

== ENCOUNTER 2019-01-23 20:33 | Emergency (ER) | payer MEDICARE, MEDICAID ==
[~2019-01-23] VITALS: Ht 144 cm; Wt 97.7 kg
[~2019-01-23 20:33] MED LIST changes: +LOPERAMIDE HCL2 MG PO; +ZOFRAN ODT4 MG/UDTAB PO
[2019-01-23 20:45] VITALS: Ht 144 cm; Wt 97.7 kg
[2019-01-23 20:59] LABS: BASOPHILS 0.2 % (0-2); EOSINOPHILS 1.8 % (0-7); HEMATOCRIT 43.3 % (36.0-48.0); HEMOGLOBIN 14.7 g/dL (12-16); IMMATURE GRANULOCYTES 0.1 % (0-5); LYMPHOCYTES 44.5 % (15-50); MCH 29.9 pg (26.0-34.0); MCHC 33.9 g/dL (31.0-37.0); MEAN PLATELET VOLUME 9.2 fL (7.4-10.4); NEUTROPHILS 46.4 % (40-80); RBC 4.92 10x6/uL (4.00-5.40); RDW 11.9 % (11.5-14.5); WBC 8.8 10x3/uL (4.8-10.8)
[2019-01-23 21:00] LABS: PLATELET COUNT 249 10x3/uL (130-400)
[2019-01-23 21:08] LABS: CALC OSMOLALITY 272 mosm/kg (275-300); CALCIUM 9.1 mg/dL (8.5-10.1); CARBON DIOXIDE 25.9 mmol/L (21.0-32.0); CHLORIDE - SERUM 104 mmol/L (98-107); CREATININE - SERUM 0.5 mg/dL (0.6-1.3); GLUCOSE 94 mg/dL (74-106); POTASSIUM - SERUM 4.1 mmol/L (3.5-5.1); SODIUM 137 mmol/L (136-145); UREA NITROGEN 11 mg/dL (7-18); eGFR NON AFRICAN AMERICAN > 90 mL/min (90-120)
[2019-01-23 21:14] LABS: ALBUMIN 3.1 g/dL (3.4-5.0); ALKALINE PHOSPHATASE 80 U/L (46-116); ALT (SGPT) 56 U/L (10-68); BILIRUBIN - TOTAL 0.31 mg/dL (0.2-1.3)
[2019-01-23 21:49] LABS: APPEARANCE CLEAR (CLEAR); BILIRUBIN NEGATIVE (NEGATIVE); COLOR YELLOW (YELLOW); GLUCOSE NEGATIVE (NEGATIVE); KETONE NEGATIVE (NEGATIVE); NITRITE NEGATIVE (NEGATIVE); PROTEIN TRACE mg/dL (NEGATIVE); SPECIFIC GRAVITY 1.025 (1.005-1.020); UROBILINOGEN NORMAL (NORMAL)
[2019-01-23 21:52] LABS: BACTERIA MANY /hpf (NEGATIVE); EPITHELIAL CELLS 0-5 /hpf (0-5); RED CELLS - URINE 0-5 /hpf (0-5); WHITE CELLS - URINE 0-5 /hpf (NEGATIVE)
[2019-01-23 23:47] LABS: HCG SERUM NEGATIVE (NEGATIVE)
[2019-01-24 00:47] VITALS: BP 146/97
== END 2019-01-24 01:00 | disposition home or self-care (01) ==
LOC: D.ER 20:33
PROVIDERS: Family Medicine
DX: R42 Dizziness and giddiness (principal); R51 Headache; I10 Essential (primary) hypertension; E78.5 Hyperlipidemia, unspecified

== ENCOUNTER 2019-01-29 17:46 | Emergency (ER) | payer MEDICARE, MEDICAID ==
[~2019-01-29] VITALS: Ht 144.8 cm; Wt 97.7 kg
[2019-01-29 17:56] VITALS: Ht 144.8 cm; Wt 97.7 kg
[2019-01-29] MEDS ORDERED: BIRTH CONTROL (18:00)
[2019-01-29] MEDS ORDERED: NORVASC10 MG PO (18:39)
[2019-01-29 18:52] VITALS: BP 149/92
== END 2019-01-29 18:55 | disposition home or self-care (01) ==
LOC: D.ER 17:46
DX: R55 Syncope and collapse (principal); I10 Essential (primary) hypertension; R51 Headache

== ENCOUNTER 2019-02-07 16:52 | Emergency (ER) | payer MEDICARE, MEDICAID ==
[~2019-02-07] VITALS: Ht 144.8 cm; Wt 98.0 kg
[~2019-02-07 16:52] MED LIST changes: +BIRTH CONTROL; +NORVASC10 MG PO
[2019-02-07 17:46] VITALS: BP 163/97; Ht 144.8 cm; Wt 98.0 kg
[2019-02-07] MEDS ORDERED: NAPROSYN500 MG PO (19:39)
== END 2019-02-07 20:06 | disposition home or self-care (01) ==
LOC: D.ER 16:52
DX: S46.911A Strain of unspecified muscle, fascia and tendon at shoulder and upper arm level, right arm, initial encounter (principal); W01.0XXA Fall on same level from slipping, tripping and stumbling without subsequent striking against object, initial encounter; Y93.9 Activity, unspecified; Y92.89 Other specified places as the place of occurrence of the external cause

== ENCOUNTER → 2019-03-06 09:29 | Outpatient (CLI) | payer MEDICARE, MEDICAID ==
[2019-02-07 17:46] VITALS: BMI 46.6
[~2019-03-06 09:29] MED LIST changes: +NAPROSYN500 MG PO
== END | disposition home or self-care (01) ==
LOC: D.HCCECHO 02-25 08:30
PROVIDERS: ATTEND Internal Medicine Interventional Cardiology
DX: R01.1 Cardiac murmur, unspecified (principal)

== ENCOUNTER 2020-04-08 09:51 | Day surgery (SDC) | payer MEDICARE, MEDICAID ==
[~2020-04-08] VITALS: Ht 144.8 cm; Wt 106.8 kg
[~2020-04-08 09:51] MED LIST changes: +MICROGESTIN FE1 EACH PO; +ZOLOFT100 MG PO
[2020-04-08 10:30] LABS: HEMATOCRIT 40.7 % (36.0-48.0); HEMOGLOBIN 13.9 g/dL (12-16); MCH 29.4 pg (26.0-34.0); MCHC 34.2 g/dL (31.0-37.0); MEAN PLATELET VOLUME 8.9 fL (7.4-10.4); RBC 4.73 10x6/uL (4.00-5.40); WBC 5.7 10x3/uL (4.8-10.8)
[2020-04-08 11:15] LABS: HCG SERUM NEGATIVE (NEGATIVE)
[2020-04-08 11:30] VITALS: Ht 144.8 cm; Wt 106.8 kg
--- NOTE | 2020-04-08 13:19 | NUR ---
DC INSTRUCTIONS GIVEN TO PT. STATES UNDERSTANDING. DC'D IV CATH FULLY INTACT. WILL DC SHORTLY
--- NOTE | 2020-04-08 13:25 | NUR ---
PT LEFT UNIT VIA WC AT 1325
--- NOTE | 2020-04-08 14:43 | OP ---
PATIENT NAME: TOSIN PERRY MEDICAL RECORD: [id number] :[birth year] LOCATION:TOM ADMISSION DATE: SURGEON: MUSTAPHA PEREZ MD DATE OF OPERATION: 04/08/2020 DATE OF SERVICE: 04/08/2020 PROCEDURE: Upper endoscopy. PREOPERATIVE DIAGNOSES: Acid reflux and abdominal pain. MEDICATION: Propofol per anesthesia. DESCRIPTION OF PROCEDURE: The patient was placed in the left lateral position and made comfortable. The endoscope was advanced through the mouth and advanced to the second part of the duodenum. The proximal esophagus was normal. In the mid and distal esophagus were exudates and inflammation consistent with linear esophagitis. There was also a small esophageal ulcer in the gastric body was erythema consistent with gastritis. Random gastric biopsies were taken. The duodenum was normal. Small bowel biopsies were taken. The patient tolerated the procedure well. FINAL DIAGNOSES: Linear esophagitis, small esophageal ulcer, gastritis. Duodenum normal. PLAN: Advance diet. Check histology results. Avoid NSAIDs. I will prescribe Protonix for this patient today and send her home with a script. Followup in GI office. TRANSINT:[id number] Voice Confirmation ID: [id number] DOCUMENT ID: [id number] MUSTAPHA PEREZ MD at 1443 CC: [id number] DICTATION DATE: 04/08/20 1252 TELEVISION NEWS PHOTOGRAPHER: 04/08/20 1258 [facility] 04/08/20 [facility] [address] [place] [address]
== END 2020-04-08 13:25 | disposition home or self-care (01) ==
LOC: D.OPS 09:51
PROVIDERS: Anesthesiology; ATTEND Internal Medicine Gastroenterology
DX: R10.9 Unspecified abdominal pain (principal); K21.9 Gastro-esophageal reflux disease without esophagitis; K22.10 Ulcer of esophagus without bleeding; K29.70 Gastritis, unspecified, without bleeding; R19.7 Diarrhea, unspecified; R11.2 Nausea with vomiting, unspecified; R10.814 Left lower quadrant abdominal tenderness